=== PATIENT | female | born 1975 | race Caucasian/White ===

== ENCOUNTER 2019-10-02 09:58 | Observation (INO) | payer MEDICAID, OTHER ==
[~2019-10-02] VITALS: Ht 152.4 cm; Wt 65.0 kg
--- NOTE | 2019-10-02 10:35 | NUR ---
CXR AT BEDSIDE
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
--- NOTE | 2019-10-02 10:52 | NUR ---
POC CLARIFIED WITH PROVIDER: TO ADMIT TO MED TELE. OFFICERS AT BEDSIDE MADE AWARE VSS OF REGIONAL CLINICAL DIRECTOR PATIENT TRANSFERRED INDEPENDENTLY TO BEDSIDE COMMODE- URINE SAMPLE OBTAINED-SENT TO LAB
[2019-10-02 11:04] LABS: BASOPHILS # (AUTO) 0.03 x10^3/uL (0-0.1); BASOPHILS % (AUTO) 0 % (0-1); EOSINOPHILS # (AUTO) 0.07 x10^3/uL (0-0.4); EOSINOPHILS % (AUTO) 1 % (1-7); LYMPHOCYTES # (AUTO) 1.61 x10^3/uL (1-3.4); LYMPHOCYTES % (AUTO) 20 % (22-44); MD NO; MEAN CORPUSCULAR HEMOGLOBIN 30.8 pg (27.0-34.8); MEAN CORPUSCULAR HGB CONC 33.2 g/dL (32.4-35.8); MEAN CORPUSCULAR VOLUME 92.8 fL (80-100); MONOCYTES # (AUTO) 0.48 x10^3/uL (0.2-0.8); MONOCYTES % (AUTO) 6 % (2-9); NEUTROPHILS # (AUTO) 5.89 x10^3/uL (1.8-6.8); NEUTROPHILS % (AUTO) 73 % (42-75); PLATELET COUNT 183 x10^3/uL (130-400); RED BLOOD COUNT 4.56 x10^6/uL (3.82-5.3); RED CELL DISTRIBUTION WIDTH 14.2 % (9.6-15.2)
[2019-10-02 11:23] LABS: ALANINE AMINOTRANSFERASE 16 U/L (12-78); ANION GAP 7 mmol/L (5-15); CALCIUM 8.2 mg/dL (8.5-10.1); CHLORIDE 115 mmol/L (98-107)
[2019-10-02 11:28] LABS: ALKALINE PHOSPHATASE 63 U/L (45-117); BILIRUBIN,TOTAL 0.2 mg/dL (0.2-1.0); CREATININE 0.66 mg/dL (0.55-1.02); TOTAL PROTEIN 6.2 g/dL (6.4-8.2); TROPONIN I < 0.015 ng/mL (0.000-0.045)
--- NOTE | 2019-10-02 11:37 | NUR ---
LUNCH SUICIDE TRAY ORDERED
--- NOTE | 2019-10-02 12:52 | NUR ---
REPORT CALLED TO NADER DOE REQUESTING LEGAL 2000/SITTER. BULLET MAKER CLARIFIED POC WITH ER PROVIDER/SKEIN TIER/PSYCHIATRY AVIONICS SAFETY INSPECTOR. BULLET MAKER CLARIFIED VIEWPOINT THAT PATIENT DOES NOT NEED LEGAL 2000 (LIMIT PATIENT RIGHTS TO D/C) PATIENT ALREADY INCARCERATED. NO NEED FOR SITTER 2 CORRECTIONAL AT BEDSIDE AT ALL TIMES. THIS POINT OF VIEW COMMUNICATED TO NADER. SHE HOWEVER FEELS THE NEED FOR SITTER/LEGAL 200. BULLET MAKER COMMUNICATED THAT SHE OR THE HOSPITALIST WERE WELCOME TO DO SO IF THEY FELT IF TO BE THE SAFEST CHOICE. [facility] SENT PATIENT TRANSFERRED TO INPATIENT BED VIA EMT AND TWO ALF OFFICERS
[2019-10-02 13:10] VITALS: BP 116/67
[2019-10-02] MEDS ORDERED: ACETAMINOPHEN 325 MG TABLET PO PRN (13:30)
[2019-10-02] MEDS ORDERED: NITROGLYCERIN 0.4 MG BOTTLE (25 TABS) SL PRN (13:30)
[2019-10-02] MEDS ORDERED: ONDANSETRON 2MG/ML, 2ML IVPush PRN (13:30)
[2019-10-02] MEDS ORDERED: ENOXAPARIN 40 MG/0.4 ML SQ SCH (13:30)
[2019-10-02] MEDS ORDERED: NITROGLYCERIN 0.4 MG/SPRAY SL PRN (13:30)
[2019-10-02] MEDS ORDERED: GABAPENTIN 300 MG CAPSULE PO PRN (13:30)
[2019-10-02 13:40] LABS: MICROSCOPIC AUTO
[2019-10-02 13:51] VITALS: BP 104/67
[2019-10-02 14:27] LABS: TROPONIN I < 0.015 ng/mL (0.000-0.045)
[2019-10-02 19:40] LABS: TROPONIN I < 0.015 ng/mL (0.000-0.045)
[2019-10-02 20:03] VITALS: BP 94/62
[2019-10-02] MEDS: NITROFURANTOIN (MACROBID) 100 MG CAPSULE PO SCH (20:22)
[2019-10-02] MEDS: LEVETIRACETAM 500 MG TABLET PO SCH (20:23)
[2019-10-02] MEDS ORDERED: HYDROXYZINE PAMOATE 25MG CAP PO SCH (21:00)
[2019-10-02] MEDS ORDERED: RISPERIDONE 1 MG TABLET PO SCH (21:00)
[2019-10-03 02:47] VITALS: BP 90/58
[2019-10-03 06:01] LABS: BASOPHILS # (AUTO) 0.05 x10^3/uL (0-0.1); BASOPHILS % (AUTO) 1 % (0-1); EOSINOPHILS # (AUTO) 0.09 x10^3/uL (0-0.4); EOSINOPHILS % (AUTO) 1 % (1-7); LYMPHOCYTES # (AUTO) 1.97 x10^3/uL (1-3.4); LYMPHOCYTES % (AUTO) 23 % (22-44); MD NO; MEAN CORPUSCULAR HGB CONC 33.3 g/dL (32.4-35.8); MEAN CORPUSCULAR VOLUME 92.9 fL (80-100); MEAN PLATELET VOLUME 8.9 fL (7.4-10.4); MONOCYTES # (AUTO) 0.53 x10^3/uL (0.2-0.8); MONOCYTES % (AUTO) 6 % (2-9); NEUTROPHILS % (AUTO) 69 % (42-75); PLATELET COUNT 165 x10^3/uL (130-400); RED BLOOD COUNT 4.02 x10^6/uL (3.82-5.3); RED CELL DISTRIBUTION WIDTH 14.1 % (9.6-15.2)
[2019-10-03 06:10] LABS: ALANINE AMINOTRANSFERASE 18 U/L (12-78); ALBUMIN 2.8 g/dL (3.4-5.0); ANION GAP 7 mmol/L (5-15); CALCIUM 7.7 mg/dL (8.5-10.1); CHLORIDE 113 mmol/L (98-107); CREATININE 0.68 mg/dL (0.55-1.02)
[2019-10-03 06:20] LABS: ALKALINE PHOSPHATASE 69 U/L (45-117); BILIRUBIN,TOTAL 0.6 mg/dL (0.2-1.0); TOTAL PROTEIN 5.5 g/dL (6.4-8.2)
[2019-10-03 07:36] VITALS: BP 102/66
[2019-10-03] MEDS: LEVETIRACETAM 500 MG TABLET PO SCH (08:40)
[2019-10-03] MEDS: NITROFURANTOIN (MACROBID) 100 MG CAPSULE PO SCH (08:40)
[2019-10-03] MEDS ORDERED: RISPERIDONE 1 MG TABLET PO SCH (09:00)
[2019-10-03 10:24] VITALS: BP 108/72
== END 2019-10-03 14:00 | disposition home or self-care (01) ==
LOC: SUATTDRO 11:11 → ED 11:26 → INTOOBSV 11:27 → EDIP 11:27 → ED 11:40 → 5SO 12:58
PROVIDERS: ADMIT Internal Medicine; ATTEND Internal Medicine
DX: T14.91XA Suicide attempt, initial encounter (principal); X83.8XXA Intentional self-harm by other specified means, initial encounter; Y93.89 Activity, other specified; Y92.89 Other specified places as the place of occurrence of the external cause; G93.41 Metabolic encephalopathy; R00.1 Bradycardia, unspecified; R23.0 Cyanosis; F11.10 Opioid abuse, uncomplicated; G40.909 Epilepsy, unspecified, not intractable, without status epilepticus; G43.909 Migraine, unspecified, not intractable, without status migrainosus; F29 Unspecified psychosis not due to a substance or known physiological condition; Z87.891 Personal history of nicotine dependence; Z88.0 Allergy status to penicillin; Z88.2 Allergy status to sulfonamides; Z88.6 Allergy status to analgesic agent
CPT/HCPCS: 36415; 71045; 80053; 81001; 83880; 84443; 84484; 85025; 93005; 93306; 96372; 99284; G0378; J1650